=== PATIENT | male | born 1950 | race Caucasian/White ===

== ENCOUNTER 2019-03-27 08:37 | Day surgery (SDC) | payer BC ==
[2019-03-24 12:05] VITALS: BMI 22.6
[2019-03-27] MEDS ORDERED: oxyCODONE HCL 10 MG SUSTAINED ACTING TABLET PO STA (08:57)
[2019-03-27] MEDS ORDERED: THROMBIN (RECOMBINANT) 5,000 UNIT VIAL TP ONE (09:50)
[2019-03-27] MEDS ORDERED: methylPREDNISolone ACET (DEPO) 40 MG/1 ML VIAL ONE (09:50)
[2019-03-27] MEDS ORDERED: LIDOCAINE 1%/EPI 1:100000 (20 ML MULTI DOSE VIAL) ONE (09:50)
[2019-03-27] MEDS ORDERED: GUM MASTIC/STORAX/MSAL/ALCOHOL 1 DRP DROPSBTL MC ONE (09:50)
[2019-03-27] MEDS ORDERED: MIDAZOLAM HCL 2 MG/2 ML SINGLE DOSE VIAL ONE (10:48)
[2019-03-27] MEDS ORDERED: DEXAMETHASONE SOD PHOSPHATE/PF 10 MG/ML SDV ONE (10:49)
[2019-03-27] MEDS ORDERED: BUPIVACAINE HCL/PF (5 MG/ML) 30 ML VIAL IJ ONE (10:49)
--- NOTE | 2019-03-27 12:15 | HP ---
History & Physical Update - History History: No Change - Physical Physical: No Change - Assessment Assessment: No Change - Plan Plan: No Change
[2019-03-27] MEDS ORDERED: PROPOFOL 20 ML ONE (12:32)
[2019-03-27] MEDS ORDERED: LIDOCAINE 1%/EPI 1:100000 (50 ML MULTI DOSE VIAL) INF ONE (12:45)
[2019-03-27] MEDS ORDERED: ceFAZolin SODIUM 1 GM VIAL ONE (12:46)
[2019-03-27] MEDS ORDERED: DEXAMETHASONE SOD PHOSPHATE 4 MG/1 ML VIAL ONE (12:46)
[2019-03-27] MEDS ORDERED: ONDANSETRON 4 MG/2 ML VIAL ONE (12:46)
[2019-03-27] MEDS ORDERED: THROMBIN (BOVINE) 5,000 UNIT VIAL TP ONE (13:14)
[2019-03-27] MEDS ORDERED: GELATIN SPONGE,ABSORBABLE 1 GM PACKET TP ONE (13:14)
[2019-03-27] MEDS ORDERED: ONDANSETRON 4 MG/2 ML VIAL IVPUSH PRN (13:21)
[2019-03-27] MEDS ORDERED: oxyCODONE HCL 5 MG TABLET PO PRN (13:21)
[2019-03-27] MEDS ORDERED: LACTATED RINGERS SOLUTION 1,000 ML IV SCH (13:30)
--- NOTE | 2019-03-27 14:12 | OP ---
Operative Note - Note: Operative Date: 03/27/19 Pre-Operative Diagnosis: lumbar stenosis Operation: laminectomy of L4-L5 with durotomy/durogen and duraseal placement Surgeon: Josemanuel Dow Rod Placer: Radha Romo Anesthesiologist/ORTHODONTIC TECHNICIAN ASSISTANT: Katalina Puente Anesthesia: Spinal Estimated Blood Loss (mls): 20 Fluid Volume Replaced (mls): 1,000 Operative Report Dictated: Yes
--- NOTE | 2019-03-27 14:13 | SURG ---
Surgery Retail Wireless Associate Note Retail Wireless Associate: Radha Romo PA-C Date of Service: 03/27/19 Diagnosis: lumbar stenosis Procedure: laminectomy of L4-L5 with durotomy/durogen and duraseal placement I was present for the entirety of the operative procedure. For further detail, please refer to operative report. Visit type - Case Type Case Type: Scheduled - Emergency Emergency Visit: No - New patient This patient is new to me today: Yes Date on this admission: 03/27/19
--- NOTE | 2019-03-27 16:04 | OP ---
DATE OF OPERATION: 03/27/2019 PREOPERATIVE DIAGNOSIS: Spinal stenosis, L4-L5. POSTOPERATIVE DIAGNOSIS: Spinal stenosis, L4-L5. PROCEDURE PERFORMED: Laminectomy, L4-L5. SURGEON: Josemanuel Dow MD SHOWER ATTENDANT: CASSANDRA Vargas ESTIMATED BLOOD LOSS: 50 mL. INTRAVENOUS FLUIDS: Per Anesthesia. ANESTHESIA: Spinal/TLIP. COMPLICATIONS: There were none. DISPOSITION: Patient brought to the PACU in stable condition. INDICATIONS FOR SURGERY: The patient is a 69-year-old gentleman who has been suffering from pain from his back down his leg. X-rays and MRI were completed which showed that he had spinal stenosis at L4-5. He had gone through an exhaustive course of treatment for this, which included medications, physical therapy, as well as injections. Unfortunately, his pain continued to persist despite all this. At this point, the risks, benefits, and alternatives were discussed and the patient consented to surgery. OPERATIVE NOTE: The patient was brought to the operating room by the Anesthesia staff. After appropriate patient identification was performed, spinal anesthesia was given. TLIP block was also given. Patient was able to position himself prone onto the OR table with all areas of bony prominences well padded at this time. Two needles were placed into his back to hawa off the L4-5 segment. X-rays taken to confirm this was correct. Needle was removed and 10 mL of lidocaine with epinephrine was injected into his back at this time. His back was prepped and draped in a sterile manner. At this point, a timeout was completed. An incision was made from the top of L4 down to the bottom of L5. Dissection was carried down to the fascia. The fascia was split open at this time and the appropriate retractors were then placed in. A spinal needle was placed onto the L4 lamina to hawa off the L4-5 level. X-rays taken to confirm this was correct. Needle was removed. The interspinous ligament at L4-5 was removed. A portion of the L4-L5 spinous process was removed. A portion of the L4-L5 lamina removed. The flavum was identified as removed. A complete decompression was performed, such that by the end of the procedure the L5 nerve root appeared to be well decompressed. All bleeding was well controlled at this time. Steroid was placed over the nerve root, Floseal was placed over that. The fascia was closed with a number-1 Vicryl suture, subcutaneous tissues were closed with 2-0 Vicryl suture, and skin was closed with 3-0 Monocryl suture. Dermabond was applied. Steri-Strips were applied. A sterile dressing was applied. The patient was placed supine on the OR bed and brought to the PACU in stable condition. Gisella DUMONT/[id number] MTDD
[2019-03-27 16:05] VITALS: TEMP 97.7
[2019-03-27 17:33] VITALS: BP 115/65; PULSE 80
== END 2019-03-27 17:15 | disposition home or self-care (01) ==
LOC: FASU 08:37
PROVIDERS: ATTEND Orthopaedic Surgery Orthopaedic Surgery of the Spine
PROC: 01NB0ZZ Release Lumbar Nerve, Open Approach (ICD-10-PCS; principal; 2019-03-27 12:30)
DX: M48.061 Spinal stenosis, lumbar region without neurogenic claudication (principal)
CPT/HCPCS: 72100-TC-FY; 94760